=== PATIENT | female | born 1970 | race African-American/Black ===

== ENCOUNTER 2017-07-30 05:33 | Inpatient (IN) | payer BC, OTHER ==
[~2017-07-30] VITALS: Ht 162.6 cm; Wt 102.4 kg
[2017-07-30] MEDS ORDERED: ONDANSETRON HCL 4 MG/2 ML VIAL IV PUSH SCH (07:00)
[2017-07-30] MEDS ORDERED: POVIDONE IODINE 5% (ANTISEPSIS KIT) 4 APPLICATIONS EACH NARE PRN (07:00)
[2017-07-30] MEDS ORDERED: ACETAMINOPHEN 1000 MG/100 ML 100 ML IV SCH ×3 (07:00→16:00)
[2017-07-30] MEDS ORDERED: SODIUM CHLORID 0.9% 500 ML IV PRN (07:00)
[2017-07-30] MEDS ORDERED: metroNIDAZOLE 500 MG INJ 100 ML IV SCH (07:00)
[2017-07-30] MEDS ORDERED: APREPITANT 40 MG CAP PO SCH (07:00)
[2017-07-30] MEDS ORDERED: SCOPOLAMINE 1.5 MG PATCH T-DERMAL SCH (07:00)
[2017-07-30] MEDS ORDERED: LACTATED RINGER'S 1000 ML IV PRN (07:00)
[2017-07-30] MEDS ORDERED: INSULIN HUMAN REGULAR 1,000 UNITS/10 ML VIAL SQ PRN (07:00)
[2017-07-30] MEDS ORDERED: METOPROLOL TARTRATE 25 MG TAB PO PRN (07:00)
[2017-07-30] MEDS ORDERED: CHLORHEXIDINE GLUCONATE 2 % 1 PACK (2 CLOTHS) TOPICAL PRN (07:00)
[2017-07-30] MEDS ORDERED: MONT10TA4 PO (07:28)
[2017-07-30] MEDS ORDERED: METF500T PO (07:28)
[2017-07-30] MEDS ORDERED: MECL-62 PO (07:28)
[2017-07-30] MEDS ORDERED: TRAZ50TA12 PO (07:28)
[2017-07-30] MEDS ORDERED: DILT-48 PO (07:28)
[2017-07-30] MEDS ORDERED: VITA1000 PO (07:28)
[2017-07-30] MEDS ORDERED: LOSA100T2 PO (07:28)
[2017-07-30] MEDS ORDERED: BUPIVACAINE/EPINEPHRINE 0.25% PF 30 ML VIAL ONE (10:04)
[2017-07-30] MEDS: ceFAZolin 2 GM PREMIX 50 ML IV SCH ×2 (10:45→11:44)
[2017-07-30] MEDS ORDERED: PHENYLEPH/NS 1000 MCG/10 ML SYR IV ONE (12:00)
[2017-07-30] MEDS ORDERED: SODIUM CHLOR 0.9% 250 ML INJ 250 ML IV ONE (12:00)
[2017-07-30] MEDS ORDERED: LIDOCAINE HCL 1% PF 5 ML SYRINGE OTHER ONE (12:00)
[2017-07-30] MEDS ORDERED: NEOSTIGMINE 5 MG/5 ML SYRINGE IV PUSH ONE (12:00)
[2017-07-30] MEDS ORDERED: PROPOFOL 200 MG/20 ML AMP IV ONE (12:00)
[2017-07-30] MEDS ORDERED: KETOROLAC TROMETHAMINE 30 MG/ML (IVP) VIAL IV PUSH ONE (12:00)
[2017-07-30] MEDS ORDERED: ROCURONIUM INJ 50 MG/5 ML SYRINGE IV PUSH ONE (12:00)
[2017-07-30] MEDS ORDERED: DEXAMETHASONE SOD PHOS 4 MG/ML VIAL IV ONE (12:00)
[2017-07-30] MEDS ORDERED: ONDANSETRON HCL 4 MG/2 ML VIAL IV PUSH ONE (12:00)
[2017-07-30] MEDS ORDERED: LACTATED RINGER'S 1000 ML INJ 1,000 ML IV ONE (12:00)
[2017-07-30] MEDS ORDERED: ePHEDrine/NS 25 MG/5 ML SYRINGE IV ONE (12:00)
[2017-07-30] MEDS ORDERED: GLYCOPYRROLATE 1 MG/5 ML SYRINGE IV PUSH ONE (12:00)
[2017-07-30] MEDS ORDERED: DO NOT ADM ANY ANTICOAGULANT DRUGS PRN (12:20)
[2017-07-30] MEDS: PANTOPRAZOLE SOD 40 MG DELAYED RELEASE TAB PO SCH ×2 (12:46→13:00)
[2017-07-30] MEDS ORDERED: *morphine SULFATE 8 MG/ML PERIprocedure ONLY ONE ×2 (12:52→14:19)
[2017-07-30] MEDS: 1/2 NS + KCL 20 MEQ INJ 1,000 ML IV SCH ×2 (12:55→23:27)
[2017-07-30] MEDS ORDERED: diphenhydrAMINE HCL 50 MG/ML VIAL IV PUSH PRN (13:00)
[2017-07-30] MEDS ORDERED: ONDANSETRON HCL 4 MG/2 ML VIAL IV PUSH PRN (13:00)
[2017-07-30] MEDS ORDERED: diphenhydrAMINE HCL ELIXIR 12.5 MG/5 ML CUP PO PRN (13:00)
[2017-07-30] MEDS ORDERED: SODIUM CHLORIDE 0.9% FLUSH 10 ML FLUSH IV FLUSH PRN (13:00)
[2017-07-30] MEDS ORDERED: Post-op Orders (for Pharmacy) OTHER ONE (13:00)
[2017-07-30] MEDS ORDERED: ENALAPRILAT 1.25 MG/ML VIAL IV PUSH PRN (13:00)
[2017-07-30] MEDS ORDERED: METHYLENE BLUE 100 MG/10 ML VIAL OTHER ONE (13:00)
[2017-07-30] MEDS ORDERED: ACETAMINOPHEN 325MG/HYDROcodone 7.5MG/15ML UDC PO PRN (13:00)
[2017-07-30] MEDS: METOCLOPRAMIDE HCL 10 MG/2 ML VIAL IV PUSH SCH ×2 (14:45→20:32)
--- NOTE | 2017-07-30 15:39 | RADRPT ---
EXAM DATE/TIME: 07/30/2017 14:36 [place] COMPARISON: No previous studies available for comparison. INDICATIONS : Pneumothorax. MEDICAL HISTORY : None. SURGICAL HISTORY : None. ENCOUNTER: Initial ACUITY: 1 day PAIN SCORE: 0/10 LOCATION: Bilateral chest FINDINGS: A single view of the chest demonstrates the lungs to be symmetrically aerated without evidence of mas s, infiltrate or effusion. The cardiomediastinal contours are unremarkable. Osseous structures are intact. CONCLUSION: Lungs are clear. No pneumothorax. Delgado Cunningham MD on July 30, 2017 at 15:33 Board Certified Radiologist. This report was verified electronically.
[2017-07-30] MEDS: ENOXAPARIN SODIUM 40 MG/0.4 ML SYRINGE SQ SCH (16:00)
[2017-07-30] MEDS: ACETAMINOPHEN 1000 MG/100 ML 100 ML IV SCH ×2 (16:00→23:27)
--- NOTE | 2017-07-30 16:15 | HHI.PR ---
Immediate Post Op Note Procedure Date: Jul 30, 2017 Pre Op Diagnosis: morbid obesity BMI 39, DM, GERD, HTN Post Op Diagnosis: SAME Surgeon: Reymundo Sadler MD Asic Verification Engineer(s): Dr. Delgado Procedure: lap sleeve gastrectomy Findings: no leak with methylene blue Complications: none Specimen(s) removed: none Estimated blood loss: 5cc Anesthesia: General Drains: None Patient to: PACU Patient Condition: Good Reymundo Sadler MD Jul 30, 2017 16:15
[2017-07-30] MEDS: ACETAMINOPHEN 325MG/HYDROcodone 7.5MG/15ML UDC PO PRN (18:22)
[2017-07-30] MEDS: metroNIDAZOLE 500 MG INJ 100 ML IV SCH (18:27)
[2017-07-30 20:17] VITALS: BP 143/80; PULSE 91; RESP 16; TEMP 98.4; O2SAT 97
[2017-07-30] MEDS: SODIUM CHLORIDE 0.9% FLUSH 10 ML FLUSH IV FLUSH SCH (20:29)
[2017-07-31] VITALS (9 sets, daily range): BP systolic 120–178; BP diastolic 62–92; PULSE 67–85; RESP 15–19; TEMP 97.1–99; O2SAT 94–99
[2017-07-31] MEDS: METOCLOPRAMIDE HCL 10 MG/2 ML VIAL IV PUSH SCH ×2 (01:43→08:58)
[2017-07-31] MEDS: metroNIDAZOLE 500 MG INJ 100 ML IV SCH ×2 (03:55→11:29)
[2017-07-31] MEDS: 1/2 NS + KCL 20 MEQ INJ 1,000 ML IV SCH ×2 (05:00→11:25)
[2017-07-31] MEDS: ACETAMINOPHEN 1000 MG/100 ML 100 ML IV SCH ×2 (06:00→09:00)
[2017-07-31 08:27] LABS: AUTOMATED NEUTROPHIL # 8.7 TH/MM3 (1.8-7.7); BASOPHIL % 0.1 % (0.0-2.0); HEMATOCRIT 37.1 % (35.0-46.0); HEMO FLAGS DIFF FINAL; LYMPH % 9.3 % (9.0-44.0); MEAN CELL VOLUME 70.8 FL (80.0-100.0); MEAN CORPUSCULAR HGB CONC 32.6 % (32.0-36.0); MONO % 5.3 % (0.0-8.0); NEUT % 85.3 % (16.0-70.0); PLATELET COUNT 304 TH/MM3 (150-450); RED BLOOD COUNT 5.25 MIL/MM3 (4.00-5.30); RED CELL DISTRIBUTION WIDTH 18.2 % (11.6-17.2); WHITE BLOOD COUNT 10.2 TH/MM3 (4.0-11.0)
[2017-07-31 08:49] LABS: BICARBONATE 24.8 MEQ/L (21.0-32.0); MAGNESIUM 2.1 MG/DL (1.5-2.5); POTASSIUM 3.5 MEQ/L (3.5-5.1)
[2017-07-31] MEDS: SODIUM CHLORIDE 0.9% FLUSH 10 ML FLUSH IV FLUSH SCH (08:58)
[2017-07-31] MEDS: PANTOPRAZOLE SOD 40 MG DELAYED RELEASE TAB PO SCH (08:59)
[2017-07-31] MEDS ORDERED: DILTIAZEM-CD 240 MG CAP ER PO SCH (10:15)
[2017-07-31] MEDS ORDERED: LOSARTAN 50 MG TAB PO SCH (10:15)
[2017-07-31] MEDS ORDERED: BENZOCAINE-MENTHOL (SUGAR FREE) 15 MG-3.6 MG LOZENGE BUCCAL ONE (11:45)
--- NOTE | 2017-07-31 11:46 | HHI.PR ---
Subjective Subjective Notes No GI complaints Going slow with fluids Was hypertensive today Objective Vitals/I&O Vital Signs Date Time Temp Pulse Resp B/P (MAP) Pulse Ox O2 Delivery O2 Flow Rate FiO2 07/31/17 08:53 178/80 (112) 07/31/17 08:29 99 21 07/31/17 08:00 99.0 73 18 07/30/17 17:50 Room Air 07/30/17 13:45 2 Labs Laboratory Tests Test 07/31/17 06:44 White Blood Count 10.2 Red Blood Count 5.25 Hemoglobin 12.1 Hematocrit 37.1 Mean Corpuscular Volume 70.8 Mean Corpuscular Hemoglobin 23.0 Mean Corpuscular Hemoglobin Concent 32.6 Red Cell Distribution Width 18.2 Platelet Count 304 Mean Platelet Volume 9.5 Neutrophils (%) (Auto) 85.3 Lymphocytes (%) (Auto) 9.3 Monocytes (%) (Auto) 5.3 Eosinophils (%) (Auto) 0.0 Basophils (%) (Auto) 0.1 Neutrophils # (Auto) 8.7 Lymphocytes # (Auto) 1.0 Monocytes # (Auto) 0.5 Eosinophils # (Auto) 0.0 Basophils # (Auto) 0.0 CBC Comment DIFF FINAL Differential Comment Blood Urea Nitrogen 8 Creatinine 0.82 Random Glucose 107 Calcium Level 8.2 Magnesium Level 2.1 Sodium Level 139 Potassium Level 3.5 Chloride Level 107 Carbon Dioxide Level 24.8 Anion Gap 7 Estimat Glomerular Filtration Rate 91 Cardiovascular: Regular Lungs: Clear Abdomen: Post-op tenderness Extremities: Perfused Wound Wound : Wound Location: Abdomen Appearance: Clean & Dry A/P Assessment and Plan 46yo F POD#1 Laparoscopic VSG -Restart home meds for BP. Change Losartan-HCTZ to just losartan 100mg -Continue to increase fluids as tolerated -Continue with frequent ambulation Discharge Planning D/C home today if able to increase PO fluids Attending Statement patient seen at bedside home meds for htn d/c planning if bp better and tolerating liquids Attestation The exam, history, and the medical decision-making described in the above note were completed with the assistance of the mid-level provider. I reviewed and agree with the findings presented. I attest that I had a [id number] encounter with the patient on the same day, and personally performed and documented my assessment and findings in the medical record. Elisabeth Michelle Jul 31, 2017 11:46 Reymundo Sadler MD Aug 04, 2017 19:09
[2017-07-31] MEDS ORDERED: METOCLOPRAMIDE HCL 10 MG/2 ML VIAL IV PUSH PRN (13:00)
--- NOTE | 2017-07-31 13:40 | EKG ---
Date Performed: 07/30/2017 Time Performed: 14:32:02 PTAGE: 46 years EKG: Sinus rhythm MODERATE VOLTAGE CRITERIA FOR LVH, CONSIDER NORMAL VARIANT NONSPECIFIC T-WAVE ABNORMALITY BORDERLINE ECG NO PREVIOUS TRACING DOCTOR: Johnny Vides Interpretating Date/Time 07/31/2017 13:39:03
[2017-07-31] MEDS: ENOXAPARIN SODIUM 40 MG/0.4 ML SYRINGE SQ SCH (14:50)
[2017-07-31] MEDS: ACETAMINOPHEN 325MG/HYDROcodone 7.5MG/15ML UDC PO PRN (14:54)
[2017-07-31] MEDS ORDERED: cloNIDine HCL 0.1 MG TAB PO ONE (16:30)
[2017-07-31] MEDS ORDERED: traZODone HCL 50 MG TAB PO SCH (21:00)
--- NOTE | 2017-08-01 10:52 | MP ---
cc: JAIME SADLER MD DATE OF SURGERY 08/01/2017 PREOPERATIVE DIAGNOSES Morbid obesity. BMI of 39. Diabetes. Hypertension. Reflux. POSTOPERATIVE DIAGNOSES Morbid obesity. BMI of 39. Diabetes. Hypertension. Reflux. PROCEDURE PERFORMED Laparoscopic sleeve gastrectomy over a 36-Mexican ViSiGi bougie. SURGEON Dr. Jaime Sadler FREEZING ROOM WORKER Dr. Sylvain Delgado ANESTHESIA GETA. IV FLUIDS See anesthesia sheet. ESTIMATED BLOOD LOSS 5 cc. DRAINS None. COMPLICATIONS None. WOUND CLASSIFICATION Clean/contaminated. FINDINGS No leak of methylene blue. INDICATION The patient is a 46-year-old female who presents with multiple attempts at weight loss without success. She has morbid obesity with a BMI of 39 and underwent workup and evaluation for bariatric surgery. Also with hypertension, reflux and diabetes. DETAILS of PROCEDURE The patient was taken to the operating suite, placed in supine position. She was prepped and draped in the usual sterile fashion after induction of general endotracheal anesthesia. A brief time-out was done stating the correct patient, procedure, surgical site. We were all in with agreement with this. Attention was first directed 15 cm distal to the xyphoid. Local anesthetic was injected. The skin incision was made with an 11-blade. A 5-mm OptiView port was placed under direct visualization. Pneumoperitoneum to 15 mmHg was done. Several trocars were placed including a 5-mm right upper quadrant trocar for liver retraction, a 15-mm right lower quadrant, followed by a 5-mm left upper quadrant and another 5-mm left lower quadrant. Local anesthetic injected at all port sites. All port sites done under direct vision. The patient was placed in reverse Trendelenburg, airplaned to the right and Fara-Flex retractor was placed to retract the left lower lobe of the liver. The greater curvature vasculature was taken down on the stomach , using harmonic scalpel a distance 5-cm proximal to the pylorus, carried up all the way to the angle of His. The angle of His was taken down bluntly, posterior attachments were also taken down as well. A 36-Mexican ViSiGi bougie was placed and placed to suction and advanced down to the proximal pylorus. This was used as a calibration device. An Endo-ANDRES stapler initial black load, followed by green loads and then gold loads to excise 80% of the stomach over the bougie 36-[place]ican ViSiGi. This was done approximately 4 cm from the pylorus, all the way up to 2 cm left of the angle of incisura and approximate 1 cm from the GE junction staple line. Next, the staple line was tested with methylene blue x 2 syringes of 60 cc each no evidence of extravasation. Next, the gastrocolic ligament was sutured to the posterior leaflet of the SeamGuard using a V-Loc running suture 2-0. Evicel was placed to the suture line for further hemostasis. The stomach was removed through the 15-mm port site. The fascia was closed with a 0 Vicryl suture passer closure device.. Pneumoperitoneum was removed, liver retractor was removed, all ports were removed as well. Local anesthetic injected at incision sites, 4-0 Monocryl used to close the subcuticular area and skin incisions. Sterile dressings were then placed. The patient tolerated the procedure well with no intraoperative complications. The patient was extubated and taken stable to the PACU. MD PEDRO PABLO Yeager/SILVANA /4:17 PM /10:13 AM
== END 2017-07-31 21:00 | disposition home or self-care (01) | DRG 621 ==
LOC: HSDI 05:33 → N07B 18:20
PROVIDERS: ADMIT Surgery; ATTEND Surgery
PROC: 0DB64Z3 Excision of Stomach, Percutaneous Endoscopic Approach, Vertical (ICD-10-PCS; principal; 2017-07-30 10:27)
DX: E66.01 Morbid (severe) obesity due to excess calories (principal); I10 Essential (primary) hypertension; Z68.39 Body mass index [BMI] 39.0-39.9, adult; E55.9 Vitamin D deficiency, unspecified; K21.9 Gastro-esophageal reflux disease without esophagitis; E11.9 Type 2 diabetes mellitus without complications; Z79.84 Long term (current) use of oral hypoglycemic drugs
CPT/HCPCS: 71010; 80048; 83735; 85025; 93005; 94150; J0131; J0690; J1100; J1650; J1885; J2270; J2370; J2405; J2710; J2765; J7050; J7120; J8501